=== PATIENT | female | born 1995 ===

== ENCOUNTER → 2023-08-08 | Outpatient (REF) | payer OTHER | LOC: M LAB REF 17:00 | PROVIDERS: ATTEND Registered Nurse | DX: R35.0 Frequency of micturition (principal) ==

== ENCOUNTER → 2023-10-09 | Outpatient (REF) | payer OTHER | LOC: M LAB REF 10:01 | PROVIDERS: ATTEND Physician Assistant | DX: R30.0 Dysuria (principal) ==